=== PATIENT | male | born 1955 | race Caucasian/White ===

== ENCOUNTER 2016-11-30 12:42 | Day surgery (SDC) | payer OTHER ==
[~2016-11-30] VITALS: Ht 180.3 cm; Wt 97.5 kg
[~2016-11-30 12:42] MED LIST: 0.9% Sodium Chloride 1,000 ML IV PRN; ASPI-351 PO; CHOL4PAC17 PO; CYCL10TA9 PO; EZET10TA PO; HYDR-4003 PO; HYDR12.5 PO; LEVO125T6 PO; LISI40TA PO; METO100T3 PO; POLY10DR21 AFFECT_EYE; Sodium Chloride LOK Flush 10 mL Syringe IV PRN; TADA20TA PO; fentaNYL-PF 50 mCg/mL 2 mL Inj IVPUSH PRN
[2016-11-30 14:19] VITALS: BP 124/69; PULSE 44; O2SAT 100
--- NOTE | 2016-11-30 15:28 | PCM.ENDCOL ---
Colonoscopy Date of Service: Nov 30, 2016 Physician Josr Colvin MD Indication for Procedure Screening family history of colon cancer Post Procedure Dx & Findings: Polyp hemorrhoids diverticuli Procedure Colonoscopy Prep adequate Cecum 4 minutes Withdrawal 12 minutes PROCEDURE IN DETAIL: After unremarkable rectal examination Olympus videocolonoscope was inserted patient's anal canal spends to cecum. Landmarks were identified including the ileocecal valve and appendiceal orifice. Scope was withdrawn systematically. The mucosa of the cecum, ascending, transverse, descending, sigmoid, rectal mucosa lined with whitish, pink, smooth, glistening, normal-appearing mucosa, normal fine branching, underlying vascularity, normal haustra. The patient tolerated procedure and was transported to observation area. In the, there was a 2 mm polyp which was resected completely using cold snare. The sigmoid junction, there was a 2 mm polyp which was resected completely using cold snare. In the sigmoid colon and to some extent into the ascending colon, there were several small diverticuli. Most were in the sigmoid colon. In the rectum retroflexion was done which showed hemorrhoids. Anal canal was inspected carefully in the way out and mild hemorrhoids noted. Impression Polyp 2 status post complete removal Diverticuli Hemorrhoids Brother with colon cancer Recommendation Repeat colonoscopy 5 years Diverticular diet Presedation Assessment Risks and Benefits Informed consent was obtained from the patient after all risks and benefits including but not limited to drug reaction, infection, pain, bleeding, perforation, as well as alternatives were discussed. Patient monitoring Continuous pulse oximetry, cardiac monitoring, blood pressure monitoring, IV access, and oxygen at 2L per nasal cannula. Periprocedural Fentanyl: Fentanyl 100mcg Incrementally Midazolam: Midazolam 5mg Incrementally Complications There were no periprocedural complications identified. Post Procedure Plan Post Procedure Recommendations 1. Restrict activities today. 2. Resume normal activities in the morning. 3. Resume medications. 4. Patient informed of normal post procedure side effects as bloating, drowsiness, blood streaking in the stool. 5. average risk CRCS. If colon polyps come back as: -Hyperplastic- can repeat colonoscopy in 10 years -Tubular adenoma- repeat colonoscopy in 5 years -Tubulovillous/villous adenoma- repeat colonoscopy in 3 years -If any dysplasia- return to clinic as soon as possible 6. Please don't hesitate to call me with any questions. Josr Colvin MD Nov 30, 2016 15:28
[2016-11-30 15:31] VITALS: BP 103/54; PULSE 46; RESP 12; O2SAT 95
[2016-11-30 15:39] VITALS: BP 107/56; PULSE 45; RESP 16; O2SAT 96
[2016-11-30 15:45] VITALS: BP 122/67; PULSE 48; RESP 16; O2SAT 97
--- NOTE | 2016-12-02 14:49 | PATH ---
SURGICAL PATHOLOGY Attending Physician:Josr Colvin M.D. CASE STATUS: Signed Out * Amended * PATIENT NAME: JOSSELYN RAMOS PID: [id number] : 1955 DATE COLLECTED:11/30/2016 00:00 SPECIMEN: 1: Colon, Biopsy 2: Rectum, Biopsy CLINICAL HISTORY: A: CECAL POLYP B: RECTAL SIGMOID COLON POLYP X1 FINAL DIAGNOSIS: 1.CECAL POLYP: TUBULAR ADENOMA. 2.RECTOSIGMOID COLON POLYP: AMENDED DIAGNOSIS HYPERPLASTIC POLYP. ICD10 CODE D12.0 NOTE: AMENDMENT This case is reviewed at this time, and part 2, which is a rectosigmoid colon polyp, was originally diagnosed as a serrated adenoma with mild dysplasia. Review at this time suggests that this represents a hyperplastic polyp. This amendment is issued at this time in order to make this correction. GROSS DESCRIPTION: The specimens are received in formalin, labeled with the patient's name, and sublabeled as the following: (1) cecal polyp; (2) rectal sigmoid colon polyp. (1) The specimen consists of a briceno-white semitranslucent rubbery sessile round glistening polyp (0.1 cm). Section code: (1A) intact polyp. Specimen entirely submitted. (2) The specimen consists of a briceno-white semitranslucent rubbery sessile glistening polyp (0.4 x 0.2 x 0.1 cm). Section code: (2A) intact polyp. Specimen entirely submitted. 12/01/16 JM MICRO DESCRIPTION: See diagnosis. ICD-9 CODES: CPT CODES: 1: 09032 2: 35185 AMENDMENT(S): Amended: 12/23/2016 by Barbie Calderon Reason:Amended Diagnosis Part 2 amended diagnosis Previous Signout Date: 12/02/2016 Electronically Signed Out Sumanth Garay MD [facility] Pathology [facility] [address], [place] [address] Technical component performed at [facility], [facility] [address], [place], [address]
== END 2016-11-30 23:59 | disposition home or self-care (01) ==
LOC: END 12:42
PROVIDERS: ATTEND Internal Medicine
DX: Z12.11 Encounter for screening for malignant neoplasm of colon (principal); D12.0 Benign neoplasm of cecum; D12.7 Benign neoplasm of rectosigmoid junction; K57.30 Diverticulosis of large intestine without perforation or abscess without bleeding; K64.8 Other hemorrhoids; Z80.0 Family history of malignant neoplasm of digestive organs; I10 Essential (primary) hypertension; I25.10 Atherosclerotic heart disease of native coronary artery without angina pectoris; Z95.1 Presence of aortocoronary bypass graft; E78.5 Hyperlipidemia, unspecified; E03.9 Hypothyroidism, unspecified; G47.33 Obstructive sleep apnea (adult) (pediatric); Z79.82 Long term (current) use of aspirin
CPT/HCPCS: 45385; J2250; J7030